=== PATIENT | female | born 1985 | race Caucasian/White ===

== ENCOUNTER 2020-04-19 20:14 | Outpatient (REF) | payer MEDICAID, SELFPAY ==
[2020-04-21 09:20] LABS: Prolactin 3.9 ng/mL (See Table)
== END 2020-04-19 20:34 ==
LOC: LBN 20:14
PROVIDERS: Visit Provider Obstetrics & Gynecology
DX: N64.3 Galactorrhea not associated with childbirth (principal)
CPT/HCPCS: 84146; 84443

== ENCOUNTER 2020-07-10 09:52 | Emergency (ER) | payer MEDICAID, SELFPAY ==
[2020-07-10 09:58] VITALS: BP 131/87; PULSE 110; TEMP 36.9; O2SAT 98
--- NOTE | 2020-07-10 10:08 | W.ED.GENAD ---
Discharge Plan Disposition Patient Disposition: HOME Condition: Stable Discharge Details Clinical Impression: Abscess, dental Primary Care Provider: Nani Diaz ED Provider: Dez Warner Home Meds and New Rx's Prescriptions: New amoxicillin-pot clavulanate [Augmentin] 875-125 mg tablet 1 tab PO BID Qty: 14 RF: 0 prednisone 20 mg tablet 60 mg PO DAILY 4 Days Qty: 12 RF: 0 oxycodone 5 mg tablet 5 mg PO Q6H PRN (Reason: pain) Qty: 12 RF: 0 Continued acetaminophen [Tylenol] 325 MG tablet 500 mg PO PRN RF: 0 ibuprofen 600 mg tablet 600 mg PO Q8H PRN PRNRF: 0 Discharge Instructions Instructions: Dental Abscess (ED) Additional Instructions: follow up with your dentist as soon as possible you can take 1000mg tylenol and 600mg ibuprofen every 6 hours for pain as needed do not drink alcohol or drive if you take the oxycodone return to the emergency department for severe worsening pain, fevers, difficulty breathing or inability to swallow liquids Medical Decision Making 34 yo female comes in with worsening upper anterior tooth pain and swelling over several days. Denies fevers, no stridor or drooling on exam. Has numerous dental caries on exam and upper lip area is swollen, is unable to tolerate full exam under the lip of anterior gum line due to pain. no submandibular swelling pain over hyoid or restricted neck movements, no findings to suggest ludwigs, rpa bellhop service captain or epiglotitis. Given degree of pain and amount of swelling will obtain imaging to evaluate for possible abscess and less likely osteo ct confirms periodontal abscess, she feels improved. I am unable to localize a pocket intraorally for me to drain. I offered to attempt blind drainage based on CT location but she would prefer to f/u with her dentist for drainage. Given degree of swelling of the lip and pain will provide short course of oxycodone and prednisone, and start augmentin, return precautions given Differential Diagnosis Differential Diagnosis: abscess, caries, pulpitis Imaging Data Radiologic Study: Attestation: I personally reviewed and interpreted this imaging study as follows: Imaging: CT Scan Radiologist's impression: 1. Periodontal abscess at the site of overlying skin marker and involving the left maxillary central and lateral incisors, measuring 1.4 x 0.6 x 2.0 cm. 2. Adjacent soft tissue swelling, likely phlegmon/cellulitis. 3. Submandibular lymphadenopathy, likely reactive. 4. Paranasal sinus disease. Lab Data Lab results reviewed: Yes I reviewed the patient's lab results. HPI General Mode of arrival: ambulatory. Date/Time Provider Initiated Documentation: 07/10/20 10:01. Limitations to Documentation: no limitations. Information obtained by: patient. History of Present Illness 34 year old F presents to the emergency department with the chief complaint of upper tooth pain, described as moderate, Patient started experiencing this day(s) (3) and it has been constant. No relieving factors improve symptom(s), No exacerbating factors reported . Patient did receive the following treatments prior to arrival, NSAID Related Data Home Medications Medication Instructions Recorded Confirmed acetaminophen [Tylenol] 500 mg PO PRN tab-cap 12/24/12 07/10/20 amoxicillin-pot clavulanate 1 tab PO BID #14 tab 07/10/20 [Augmentin] ibuprofen 600 mg PO Q8H PRN PRN 07/10/20 07/10/20 oxycodone 5 mg PO Q6H PRN #12 tab 07/10/20 prednisone 60 mg PO DAILY 4 Days #12 tab 07/10/20 Previous Rx's Medication Instructions Recorded amoxicillin-pot clavulanate 1 tab PO BID #14 tab 07/10/20 [Augmentin] oxycodone 5 mg PO Q6H PRN #12 tab 07/10/20 prednisone 60 mg PO DAILY 4 Days #12 tab 07/10/20 Allergies Allergy/AdvReac Type Severity Reaction Status Date / Time aspirin Allergy Intermediate Causes Unverified 07/10/20 10:03 bruising/bleeding wool Allergy Unknown Unverified 07/10/20 10:03 adhesive Allergy Skin Rash, Unverified 07/10/20 10:03 skin tears cat dander Allergy Unverified 07/10/20 10:03 dog dander Allergy Unverified 07/10/20 10:03 pollen extracts Allergy Unverified 07/10/20 10:03 POPPELLES ( FRUIT- LOOKS Allergy Severe Uncoded 07/10/20 10:03 LIKE A PEAR) SCENTED SOAPS Allergy Unknown Uncoded 07/10/20 10:03 Water Allergy Uncoded 07/10/20 10:03 General Stated Complaint: FacialProb DIANA: 2 Review of Systems All systems reviewed & are unremarkable except as noted in HPI and below Constitutional Constitutional: Denies chills, Denies fever(s) and Denies weakness Cardiovascular Cardiovascular: Denies chest pain Respiratory Respiratory: Denies cough Gastrointestinal Gastrointestinal: Denies abdominal pain, Denies nausea and Denies vomiting Musculoskeletal Musculoskeletal: Denies joint swelling Neurologic Neurologic: Denies weakness [facility] Medical History (Updated 07/10/20 @ 11:46 by Dez Warner MD) anxiety Asthma Fibromyalgia Genital herpes simplex Gout hypoparathyroid condition reported by pt. Lyme disease as per mds at [facility], according to pt no mkeds rx'd. Positive test PTSD (post-traumatic stress disorder) Pt reports SSRI meds made her suicidal. Rheumatoid arthritis Tendonitis Tobacco abuse Surgical History (Updated 07/02/18 @ 14:33 by [employer]) Cholecystectomy thyroidectomy Tonsillectomy Family History Mother Alcohol abuse Personal history of malignant neoplasm Asthma Father Alcohol abuse Personal history of malignant neoplasm Sister Asthma Social History Smoking/Tobacco Use Status: Current every day Drug use: Never Substance use type: does not use Do you feel safe at home: Yes Do you feel safe in your relationship?: Yes Exam Const General: no acute distress Orientation: alert HENMT Head: normal to inspection Ears: external ears normal General nose exam: external nose normal Mouth: moist mucous membranes Eyes General: appearance normal, both eyes and all related structures Neck Neck: normal visual inspection Resp Effort & Inspection: normal respiratory effort and able to speak in complete sentences Cardio Rate: regular rate Skin General skin exam: no rashes or lesions noted Neuro General: patient alert and patient oriented x3 Extrem General: normal to inspection Psych Mental Status: mental status grossly normal Course Vital Signs Vital signs: Vital Signs Temperature 36.9 C 07/10/20 09:58 Pulse 110 H 07/10/20 09:58 Blood Pressure 131/87 07/10/20 09:58 Pulse Oximetry 98 07/10/20 09:58 Temperature 36.9 C 07/10/20 09:58 Temperature Source Temporal Artery Scan 07/10/20 09:58 Pulse 110 H 07/10/20 09:58 Blood Pressure 131/87 07/10/20 09:58 Blood Pressure Position Sitting 07/10/20 09:58 Pulse Oximetry 98 07/10/20 09:58 Oxygen Delivery Method Room Air 07/10/20 09:58 Oxygen Flow Rate 0 07/10/20 09:58 Pain Level 8 07/10/20 09:58
[2020-07-10 10:32] LABS: Abs Immature Grans 0.07 10^3/uL (0.0-0.06); Absolute Monocyte Count 1.41 10^3/uL (0.1-0.8); Basophils % 0.2; Eosinophils % 0.6; HCT 41.2 % (36.0-46.0); Immature Grans % 0.4; Lymphocytes % 16.1; MCH 29.7 pg (27.0-33.0); MCV 87.3 fL (80-95); MPV 12.4 fL (8.0-11.0); Monocytes % 8.7; Nucleated RBC 0 %; Platelet Count 225 10^3/uL (130-400); RBC 4.72 10^6/uL (3.93-5.22); RDW 13.4 % (11.7-14.6); RDW-SD 42.9 fL; WBC 16.16 10^3/uL (4.4-10.8)
[2020-07-10] MEDS: methylPREDNISolone SUCC 125 MG VIAL IVP (10:36)
[2020-07-10] MEDS: Normal Saline Flush 10 ML SYR IVP (10:36)
[2020-07-10] MEDS: Normal Saline 1,000 ML 1000 ML IV (10:36)
[2020-07-10] MEDS: Amoxicillin 875/Clav. 125 TAB PO (10:36)
[2020-07-10] MEDS: Ondansetron 4 MG/2 ML VIAL IVP (10:37)
[2020-07-10 10:47] LABS: Absolute Basophil Count 0.03 10^3/uL (0.0-0.2); Absolute Neutrophil Count 11.96 10^3/uL (1.2-6.7)
[2020-07-10 10:50] LABS: ALT 21 U/L (14-59); AST 17 U/L (15-37); Alkaline Phosphatase 58 U/L (46-116); Anion Gap 11.8 mmol/L (3-11); BUN 9 mg/dL (7-18); Bilirubin, Total 0.7 mg/dL (0.2-1.0); CO2 23.2 mmol/L (21.0-32.0); CREATININE 0.85 mg/dL (0.55-1.02); Calcium 9.1 mg/dL (8.5-10.1); Chloride 103 mmol/L (98-107); Glucose 110 mg/dL (74-106); Potassium 3.2 mmol/L (3.5-5.1); Sodium 138 mmol/L (136-145); Total Protein 7.7 g/dL (6.4-8.2)
--- NOTE | 2020-07-10 11:05 | DI.CT_ITS ---
EXAM: CT FACIAL W CLINICAL HISTORY: facial swelling, ?abscess TECHNIQUE: COMPARISON: No exams were available for comparison FINDINGS: CT examination of the facial region was performed with intravenous infusion of 100 cc of Omnipaque 35 0. The visualized paranasal sinuses are clear except for minimal localized mucoperiosteal thickening or retention cyst of the of floor of the left maxillary antrum. There is no evidence of fracture or lytic bony lesion. Note is made of soft tissue edema of the left para maxillary soft tissues, there is an apparent Em odontoid abscess with low-attenuation centrally and rim enhancement measuring roughly 2 x 1.5 by 0.6 millimeters in diameter adjacent to the left maxilla at the level of the premolars. No additional focal suspected abscess. No significant lymphadenopathy in the cervical region. Tracheolaryngeal structures appear intact as visualized. IMPRESSION: Presumed small left Em odontoid abscess adjacent to the maxilla at the level of the premolars. RADIATION DOSE DELIVERED: 699.52mGy.cm Total DLP
--- NOTE | 2020-07-10 11:22 | DI.VRAD_ITS ---
PROCEDURE INFORMATION: Exam: CT Maxillofacial With Contrast Exam date and time: 07/10/2020 10:59 AM Age: 34 years old Clinical indication: Mass, lump, or swelling; Mouth; Patient HX: Swelling on two front teeth since Saturday, worsened today. ; Additional info: Bb marker placed at area of increased pain and swelling. TECHNIQUE: Imaging protocol: Computed tomography images of the face with intravenous contrast. Radiation optimization: All CT scans at this facility use at least one of these dose optimization techniques: automated exposure control; mA and/or kV adjustment per patient size (includes targeted exams where dose is matched to clinical indication); or iterative reconstruction. COMPARISON: No relevant prior studies available. FINDINGS: Orbital cavity: Orbits are normal. Globes are unremarkable. Bones/joints: No acute fracture or aggressive osseous abnormality. Paranasal sinuses: Small left maxillary sinus mucous retention cyst. Left middle turbinate sebastien bullosa. Soft tissues: Soft tissue swelling anterior to the maxilla at the site of overlying radiopaque skin marker. Superimposed rim enhancing fluid collection anterior to the left maxillary central and lateral incisors, measuring 1.4 x 0.6 x 2.0 cm (sagittal image 39, series 5 and axial image 69 of series 3). Adjacent soft tissue induration with additional areas of ill-defined hypodensities, likely phlegmon. Periodontal disease with dental cavitation of the adjacent left maxillary central and lateral incisors in addition to several additional teeth; recommend correlation with dental examination. Lymph nodes: Submandibular lymphadenopathy, measuring up to 1.0 cm on the left and 0.9 cm on the right. IMPRESSION: 1. Periodontal abscess at the site of overlying skin marker and involving the left maxillary central and lateral incisors, measuring 1.4 x 0.6 x 2.0 cm. 2. Adjacent soft tissue swelling, likely phlegmon/cellulitis. 3. Submandibular lymphadenopathy, likely reactive. 4. Paranasal sinus disease. Dictated and Authenticated by: Yessenia Wing MD. Ordering:CORA Garces MD
[2020-07-10] MEDS: Omnipaque 350 MG/ML 100 ML BTL IJ (11:23)
[2020-07-10] MEDS: Normal Saline - Diluent 50 ML VIAL IV (11:23)
[2020-07-10 11:59] VITALS: BP 133/79; PULSE 57; RESP 20; TEMP 36.5; O2SAT 97
== END 2020-07-10 12:03 | disposition home or self-care (01) ==
PROVIDERS: Emergency Provider Emergency Medicine
DX: R68.84 Jaw pain (principal); K04.7 Periapical abscess without sinus
CPT/HCPCS: 36415; 80053; 96361; 96374; 96375; 99284; 70487; 85025; J2405; J2930; J3490

== ENCOUNTER 2022-04-06 23:07 | Emergency (ER) | payer MEDICAID, SELFPAY ==
[2022-04-06 23:19] VITALS: BP 136/87; PULSE 89; RESP 15; TEMP 36.7
[2022-04-06] MEDS: Lidocaine/Epinephri/Tetracaine Topical Gel 3 ML (23:32)
--- NOTE | 2022-04-07 00:15 | DI.RAD_ITS ---
Exam(s) XR FOREARM RT EXAM: XR FOREARM RT CLINICAL HISTORY: dog bite, r/o fx. TECHNIQUE: 2D digital imaging was performed of the left forearm. Two views were obtained. AP and l ateral views were obtained. COMPARISON: No exams were available for comparison FINDINGS: BONES: No acute fracture is present. No bony destructive lesion is seen. Visualized portion of elbow and wrist joints are unremarkable. SOFT TISSUE: There is air and soft tissue swelling in the distal forearm adjacent to the ulna. No ra diopaque foreign body is identified. IMPRESSION: Small amount of air in soft tissue swelling in the distal forearm medially. No acute fracture or rad iopaque foreign body is identified. DATA REPOSITORY: RADIATION DOSE DELIVERED:
--- NOTE | 2022-04-07 01:08 | W.ED.GENAD ---
Discharge Plan Disposition Patient Disposition: HOME Condition: Good Discharge Details Clinical Impression: Facial laceration, Dog bite, Laceration of right forearm Primary Care Provider: None,None ED Provider: Darío Penaloza Home Meds and New Rx's Prescriptions: New amoxicillin-pot clavulanate 875-125 mg tablet 1 tab PO BID Qty: 20 0RF No Action acetaminophen [Tylenol] 325 MG tablet 500 mg PO PRN Label Comments: states that she takes 3-4 tabs every 4-6 hours daily. Discharge Instructions Instructions: Animal Bite (ED), Care For Your Absorbable Stitches (ED), Facial Laceration (ED) Additional Instructions: At this time we have been able to suture the laceration on your face and arms. Observable sutures have been placed, these will come out on their own in 7 to 10 days. Due to the nature of the infection it was cleaned thoroughly, however because of the nature of the bite from the dog, there is a high likelihood for infection. Please take the antibiotic as directed to help diminish the likelihood of an infection. You may notice a small amount of redness or pus that comes out, but if you start to notice continued amounts, or it begins to become larger or painful, please return for reassessment. Because of the nature of the laceration to your face there will be a scar. In regards to scar healing, the best way to help reduce the risk of a scar going forward is once the sutures are removed, you avoid any exposure to the sun for the affected area for the next 1 year. It is also imperative that you apply a moisturizer to the area twice daily for the next 1 to 2 years. This can be any [id number] topical moisturizer, including vitamin E. Taking a daily multivitamin with zinc will also increase your wound healing. Please take Tylenol and Motrin as needed for pain. Use ice over the tender areas to help with the pain. If you cannot determine the rabies vaccination status of the dog within the next 48 hours, please return for rabies vaccinations here. It will require multiple shots. Please follow-up here in the emergency department or with your primary care provider in the next 4 to 5 days for wound recheck. If you notice any worsening of your symptoms, or any new symptoms such as increased swelling, redness or drainage, vomiting, diarrhea, fever, chills, shortness of breath, chest pain, numbness, weakness, or fainting , please return immediately to the emergency department for reevaluation. Please follow up with your primary care provider as soon as possible for reassessment and reevaluation. As always, it was a pleasure participating in your medical care today. Medical Decision Making 36-year-old female with a past medical history of anxiety, asthma, fibromyalgia, previous gout, dental caries, who presents today for evaluation of dog bite. Patient states she received her last tetanus shot 5 years ago. Patient was visiting a friend's house when per patient a pit bull came up to her and started to lick her and was acting friendly, she states seconds later it then went and bit her on her right forearm and left face. The dog had to be pulled off of her arm. She washed the affected areas, and came to the ER for further assessment. She admits to pain in her left face and right forearm. She denies any numbness or tingling. She denies any other complaints at this time. No other trauma.. She states that she believes the dogs rabies vaccines are up-to-date. Physical exam demonstrates a notably large 6 cm laceration over the left cheek, skin is macerated, borders are irregular. Wound area needed to be revised, and a large flap of skin had to be removed. Area was sutured with 1 subcutaneous suture and 6 simple interrupted surface sutures. In addition to this, a few small punctures were noted on the right forearm as well, to required suturing for loose wound edge reapproximation. All lesions were cleaned with chlorhexidine scrub. Patient tolerated this well. No evidence of neurovascular compromise otherwise from the face of the hand. Patient states that her tetanus is updated 5 years ago. We do not have record of this, but she is personally sure this. Because of the soreness on the patient's right forearm, we did get x-rays to rule out fracture. X-rays are negative for acute process otherwise. Patient believes that the dogs rabies vaccine status is up-to-date, I did offer her immunization options here, but she has decided to withhold for the time being. Patient will be started on Augmentin for infection prophylaxis. Discussed red flags for which to return. I have extensively reviewed the treatment plan and discharge instructions with the patient. I have addressed all patient concerns at this time. The patient was made aware of what symptoms to monitor for that would warrant a return to the emergency department. Discussed the plan with the patient, they demonstrate verbal understanding and agreement with our assessment and plan at this time. The documentation in this chart was dictated using [employer] dictation software. Please excuse any dictation errors. HPI General Date/Time Provider Initiated Documentation: 04/06/22 23:12. HPI Narrative: 36-year-old female with a past medical history of anxiety, asthma, fibromyalgia, previous gout, dental caries, who presents today for evaluation of dog bite. Patient states she received her last tetanus shot 5 years ago. Patient was visiting a friend's house when per patient a pit bull came up to her and started to lick her and was acting friendly, she states seconds later it then went and bit her on her right forearm and left face. The dog had to be pulled off of her arm. She washed the affected areas, and came to the ER for further assessment. She admits to pain in her left face and right forearm. She denies any numbness or tingling. She denies any other complaints at this time. No other trauma.. She states that she believes the dogs rabies vaccines are up-to-date. Related Data Home Medications Medication Instructions Recorded Confirmed acetaminophen 325 mg tablet 500 mg PO PRN 12/24/12 11/16/21 (Tylenol) amoxicillin 875 mg-potassium 1 tab PO BID #20 tabs 04/07/22 clavulanate 125 mg tablet Previous Rx's Medication Instructions Recorded amoxicillin 875 mg-potassium 1 tab PO BID #20 tabs 04/07/22 clavulanate 125 mg tablet Allergies Allergy/AdvReac Type Severity Reaction Status Date / Time aspirin Allergy Intermediate Causes Unverified 11/16/21 14:07 bruising/bleeding wool Allergy Unknown Unverified 11/16/21 14:07 adhesive Allergy Skin Rash, Unverified 11/16/21 14:07 skin tears cat dander Allergy Unverified 11/16/21 14:07 dog dander Allergy Unverified 11/16/21 14:07 pollen extracts Allergy Unverified 11/16/21 14:07 POPPELLES ( FRUIT- LOOKS Allergy Severe Uncoded 11/16/21 14:07 LIKE A PEAR) SCENTED SOAPS Allergy Unknown Uncoded 11/16/21 14:07 Water Allergy Uncoded 11/16/21 14:07 General Stated Complaint: AnimalBite DIANA: 4 Review of Systems All systems reviewed & are unremarkable except as noted in HPI and below PFSH All Active Problems Facial laceration (Acute) Dog bite (Acute) Laceration of right forearm (Acute) Uterine prolapse (Acute) Stage 3. Cervix at introitus with valsalva in lithotomy Galactorrhea (Acute) Spotting (Acute) Genital herpes simplex (Acute) Medical History Gout Lyme disease as per mds at [facility], according to pt no mkeds rx'd. Tendonitis Surgical History Cholecystectomy thyroidectomy Tonsillectomy Family History Mother Alcohol abuse Personal history of malignant neoplasm Asthma Father Alcohol abuse Personal history of malignant neoplasm Sister Asthma Social History Smoking/Tobacco Use Status: Current every day Tobacco Type: cigarettes Smoking risk assessment performed?: Yes Alcohol Intake: never Drug use: Daily Substance use type: marijuana Household members: significant other Do you feel safe at home: Yes Do you feel safe in your relationship?: Yes Additional Social history: Children: Niya Gavin Female Reproductive History Menstrual control method: permanent sterilization History History 8 Para 4 Hx # Term Pregnancies 4 Multiple births Hx # Pregnancies Ectopic pregnancies AB induced Hx Number of Living Children AB spontaneous 4 Exam Narrative Exam Narrative: 1.Const: Well-nourished, Well-developed, appearing stated age 2.Eyes: PERRL, no conjunctival injection, and symmetrical lids. 3.ENT: Atraumatic external nose and ears. Moist MM. Neck: Symmetric, trachea midline, No thyromegaly. 4.CVS: +S1/S2, No murmurs or gallops. Peripheral pulses 2+ and equal in all extremities. Brisk capillary refill in all extremities. 5.RESP: Unlabored respiratory effort. Clear to auscultation bilaterally. No wheezes rales or rhonchi 6.GI: Soft, Nontender/Nondistended, No hepatosplenomegaly. No guarding or rebound. 7.MSK: Normocephalic, Extremities w/o deformity. No cyanosis or clubbing, Normal movement of all extremities. Patient's right forearm demonstrates 3 puncture lacerations on the forearm, mild bruising, and mild swelling. Patient able to move fingers hands and wrist. Mild to moderate tenderness on palpation of the forearm. 8.Skin: Patient demonstrates a 5-1/2 cm laceration to the left jaw area/cheek. No evidence of intraoral lesion. Notable maceration of the skin in that area. No active bleeding. 9.Neuro: health consultant II-XII grossly intact. Sensation grossly intact, no focal neurologic deficits. 10.Psych: (AAO) x3. Somewhat tremulous and anxious. Course Vital Signs Vital signs: Vital Signs Temperature 36.7 C 04/06/22 23:19 Pulse 89 04/06/22 23:19 Respiratory Rate 15 04/06/22 23:19 Blood Pressure 136/87 04/06/22 23:19 Temperature 36.7 C 04/06/22 23:19 Temperature Source Skin 04/06/22 23:19 Pulse 89 04/06/22 23:19 Respiratory Rate 15 04/06/22 23:19 Respiratory Effort 04/06/22 23:26 Blood Pressure 136/87 04/06/22 23:19 Blood Pressure Position Supine 04/06/22 23:19 Oxygen Delivery Method Room Air 04/06/22 23:19 Oxygen Flow Rate 0 04/06/22 23:19 Pain Level 6 04/06/22 23:19 Procedures Laceration Laceration 1: Site: face Side (If applicable): left Size (cm): 6 Description: flap and irregular Depth: simple, single layer Local Anesthetic: Lidocaine 1% and with Epi Amount of anesthesia used (mL): 5 Pre-repair: wound explored, irrigated extensively, deep structures intact and wound margins revised Skin layer closed with: other (chromic gut) Size (cm): 5-0 Number of sutures: 6 Technique: simple, interrupted Subcutaneous layer closed with: vicryl Size: 5-0 Number of sutures: 1 Technique: simple, interrupted Laceration 2: Site: upper extremity Side (If applicable): right Size (cm): 0.5 Description: linear Depth: simple, single layer Local Anesthetic: Lidocaine 1% Amount of anesthesia used (mL): 1 Pre-repair: wound explored, irrigated extensively and deep structures intact Skin layer closed with: other (chromic gut) Size (cm): 5-0 Number of sutures: 1 Laceration 3: Site: upper extremity Side (If applicable): right Size (cm): 0.5 Description: linear Depth: simple, single layer Local Anesthetic: Lidocaine 1% Amount of anesthesia used (mL): 1 Pre-repair: wound explored, irrigated extensively and deep structures intact Skin layer closed with: other (chromic gut) Size (cm): 5-0 Number of sutures: 1 Technique: simple, interrupted
[2022-04-07 01:22] VITALS: BP 123/66; PULSE 67; RESP 14; TEMP 36.8; O2SAT 98
--- NOTE | 2022-04-07 02:03 | DI.VRAD_ITS ---
PROCEDURE INFORMATION: Exam: XR Right Forearm Exam date and time: 04/07/2022 12:38 AM Age: 36 years old Clinical indication: Injury or trauma; Arm, lower; Right; Injury date: 04/06/22; Injury details: Dog bite, R/O FX TECHNIQUE: Imaging protocol: Radiologic exam of the Right forearm. Views: 2 views. COMPARISON: No relevant prior studies available. FINDINGS: Bones/joints: Normal. Soft tissues: Air is noted in the subcutaneous tissues compatible with a puncture wound. IMPRESSION: Air is noted in the subcutaneous tissues compatible with a puncture wound. Dictated and Authenticated by: Chai Bermudez MD. Ordering:KIMBERLY Chanel MD
== END 2022-04-07 01:40 | disposition home or self-care (01) ==
PROVIDERS: Emergency Provider Student in an Organized Health Care Education/Training Program
DX: S01.81XA Laceration without foreign body of other part of head, initial encounter (principal); S51.811A Laceration without foreign body of right forearm, initial encounter; F17.210 Nicotine dependence, cigarettes, uncomplicated; W54.0XXA Bitten by dog, initial encounter
CPT/HCPCS: 12001; 12053; 99283; 73090; 99284